=== PATIENT | female | born 1955 | race Caucasian/White ===

== ENCOUNTER 2024-02-26 14:32 | Emergency (ER) | payer MEDICARE, SELFPAY ==
--- NOTE | ~2024-02-26 | XR_ITS ---
XR knee RT 3V DATE: 02/26/2024 15:34 INDICATION: Pain TECHNIQUE: Crosstable lateral, AP and oblique views COMPARISON: None FINDINGS: There is tricompartment osteoarthritis, most severe at the patellofemoral compartment with very prominent periarticular spurring. There is moderate loss of medial compartment joint space heigh t. There is periarticular spurring at the medial and lateral compartments. No fracture or dislocation or joint effusion. No periosteal reaction or bone destruction. No radiopaq ue intra-articular loose body or chondrocalcinosis is noted. IMPRESSION: Tricompartment osteoarthritis, most prominent at the patellofemoral compartment No fracture or dislocation or joint effusion Reviewed, dictated and finalized at location [facility].
--- NOTE | ~2024-02-26 | CT_ITS ---
EXAMINATION: CTA chest PE protocol DATE: 02/26/2024 15:51 INDICATION: Dizziness. Elevated d-dimer TECHNIQUE: Computed tomography angiography (CTA) of the chest was performed with 100 mL Omnipaque-350 intravenous contrast timed to evaluate the pulmonary arteries. Coronal maximum intensity projection 3D-reconstructions were created by the technologist. Automated exposure control and iterative reconst ruction technique were employed. Exam dose: 1036.05 mGy-cm total exam DLP. COMPARISON: 02/26/2024 2 view chest. FINDINGS: There is diagnostic contrast enhancement of the pulmonary arteries and no evidence of pulmo nary embolism. Cardiomegaly. No pericardial or pleural effusion. No hilar or mediastinal mass lesion or hemorrhage. No thoracic aortic aneurysm or dissection. No evidence of aneurysm of the suprarenal abdominal aorta. The lungs are clear of infiltrate or consolidation. Normal morphology of the adrenal glands. Degenerative spurring of the lower cervical and the thoracic spine. No suspicious osteolytic or osteo blastic lesions are noted. IMPRESSION: No evidence of pulmonary embolism Cardiomegaly Reviewed, dictated and finalized at [facility]. Reviewed, dictated and finalized at location [facility].
--- NOTE | ~2024-02-26 | XR_ITS ---
XR chest 2V DATE: 02/26/2024 15:34 INDICATION: Dizziness TECHNIQUE: AP and lateral views COMPARISON: None FINDINGS: Cardiomegaly. Aortic ectasia and mild unfolding. No hilar or mediastinal enlargement. No pulmonary infiltrate or consolidation, pleural effusion or pulmonary vascular congestion or pneumo thorax is detected. IMPRESSION: Cardiomegaly Aortic ectasia and mild unfolding No active pulmonary disease Reviewed, dictated and finalized at location [facility].
--- NOTE | ~2024-02-26 | XR_ITS ---
XR knee LT 3V DATE: 02/26/2024 15:34 INDICATION: Bilateral knee pain. No injury. TECHNIQUE: 3 views including crosstable lateral COMPARISON: None FINDINGS: There is tricompartment osteophytosis, most prominent at the patellofemoral and medial comp artments, with joint space loss and prominent particular spurring. No fracture or dislocation or joint effusion. No periosteal reaction or bone destruction. No radiopaq ue interarticular loose body or chondral calcinosis. There is enthesopathy of the patella at the quadriceps and patellar tendon insertions. IMPRESSION: Tricompartment osteoarthritis, most prominent at the patellofemoral and medial compartmen ts Reviewed, dictated and finalized at location A. IMPRESSION: Tricompartment osteoarthritis, most prominent at the patellofemoral and medial compartments
--- NOTE | ~2024-02-26 | CT_ITS ---
EXAMINATION: CT brain wo con DATE: 02/26/2024 15:51 INDICATION: Vertigo TECHNIQUE: Computed tomography (CT) of the head was performed without intravenous contrast. The mA wa s adjusted according to patient size. Iterative reconstruction technique was employed. Exam dose: 98 3.67 mGy-cm total exam DLP. COMPARISON: None FINDINGS: There is bilateral carotid siphon internal carotid artery calcification. 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 No intracranial mass lesion or hemorrhage or cerebrovascular accident, midline shift or mass effect i s evident. No skull fracture or bone destruction. Paranasal sinuses and mastoid air cells are well-developed and aerated. IMPRESSION: Cerebral atherosclerosis and chronic small vessel ischemic changes of the cerebral No acute intracranial finding Reviewed, dictated and finalized at [facility]. Reviewed, dictated and finalized at location [facility].
[2024-02-26 14:31] VITALS: BP 131/77; PULSE 63; RESP 15; TEMP 36.4; O2SAT 97
--- NOTE | 2024-02-26 14:36 | ECG_ITS ---
Test Date: 2024-02-26 14:36:37 Measurements Intervals Gay Rate: 63 P: 69 NJ: 216 QRS: 11 QRSD: 93 T: 117 QT: 368 QTc: 377 Interpretive Statements SINUS RHYTHM WITH FIRST DEGREE AV BLOCK INCOMPLETE RIGHT BUNDLE BRANCH BLOCK ANTEROSEPTAL MYOCARDIAL INFARCTION , OF INDETERMINATE AGE BORDERLINE ST-T WAVE ABNORMALITY- DIFFUSE LEADS BASELINE ARTIFACT- I, II, III, AVR, AVL, AVF, V1-V6 ABNORMAL ECG No previous ECG available for comparison Electronically Signed On 02-26-2024 19:01:46 CDT by Chuck Clarke D.O.
--- NOTE | 2024-02-26 14:47 | ED.GENADULT ---
HPI - General Adult General Chief complaint: Dizziness Stated complaint: stemi ALERT Time Seen by Provider: 02/26/24 14:40 History of Present Illness HPI narrative: This is a 68-year-old female with a past medical history significant for hypertension, osteoarthritis, chronic pain. Today patient presents to the emergency department via EMS for concerns of increasing dizziness and difficulty walking. Patient states that is been going on for several months but worse this morning. She describes as a room spinning sensation without loss of consciousness. She is endorsing a headache as well. She states that her bilateral knees are aching and causing her significant pain when she walks. EMS was called the seen, they obtained an EKG that showed some concerning ST segment changes and initially was transporting the patient to the hospital for potential STEMI alert. Patient denied any chest pain, shortness a breath, nausea, vomiting, abdominal pain, back pain, diaphoresis. No other anginal equivalents on review of systems questions. She was provided aspirin in route. She was placed on nasal cannula she was saturating 90% in room air. Patient has no history of coronary disease to her knowledge and has never had any heart issues aside from hypertension according to herself. EKG obtained on arrival does not show a STEMI, does have some nonspecific ST segment changes, but not convincingly acute coronary syndrome especially with the lack of symptoms. Code was canceled at this time until further evaluation. Related Data Allergies Allergy/AdvReac Type Severity Reaction Status Date / Time No Known Allergies Allergy Verified 02/26/24 14:41 Review of Systems Review of Systems: As reviewed above in HPI Exam Narrative: GENERAL: [Well-appearing, well-nourished, and in no acute distress.] HEAD: [Normocephalic, atraumatic.] EYES: [PERRLA and EOMI.] ENT: Nares clear, no rhinorrhea or epistaxis. Mucous membranes moist. NECK: Supple. CHEST: [Clear to auscultation. No respiratory distress.] HEART: [Regular rate and rhythm]. No murmur heard. [Normal peripheral pulses.] ABDOMEN: [Soft, nondistended], [nontender], [No rigidity or guarding] EXTREMITIES: Normal range of motion. [No edema.] Tenderness with palpation of the bilateral knees. Able to lift both her legs in the air, no tenderness over the hips. Full range of motion of the extremities. SKIN: Warm, dry, no rash. NEURO: [No focal deficits]. Alert and oriented [x3.] Normal strength and sensation throughout both arms and legs. Awake alert oriented. No ataxia. PSYCH: [Normal mood and affect.] Course Vital Signs Vital signs: Vital Signs Temperature 36.4 C 02/26/24 14:31 Pulse Rate 63 02/26/24 14:31 Respiratory Rate 15 02/26/24 14:31 Blood Pressure 131/77 02/26/24 14:31 Pulse Oximetry 97 02/26/24 14:31 Oxygen Delivery Room Air 02/26/24 14:31 Temperature 36.4 C 02/26/24 14:31 Pulse Rate 51 L 02/26/24 16:15 Respiratory Rate 12 02/26/24 16:15 Blood Pressure 120/70 02/26/24 16:15 Pulse Oximetry 98 02/26/24 16:15 Oxygen Delivery Room Air 02/26/24 14:31 Medical Decision Making MDM Narrative Medical decision making narrative: This is a 68-year-old female with history of hypertension, osteoarthritis, chronic pain who presents to the emergency department for evaluation of dizziness and knee pain. Her symptoms have been going on for several months but worse this morning. She describes occasional room spinning sensations and difficulty ambulating secondary to the pain in her knees. Initial EKG was obtained by EMS that was concerning to them however on evaluation to the emergency department with repeat EKG does not show any kind of STEMI but does have some nonspecific ST segment changes requiring further evaluation. Patient has no chest pain, shortness a breath or other symptoms at this time. She appears well has a normal cardiovascular neurologica
[2024-02-26 14:54] LABS: Glucose Point of Care 107 mg/dl (65-105)
[2024-02-26] MEDS: MECLIZINE HCL 25 MG TABLET PO (14:57)
[2024-02-26] MEDS: LACTATED RINGERS 1,000 ML 999 ML IV CONT (14:59)
[2024-02-26 15:05] LABS: Basophils Percent Auto 0.5 % (0.2-1.2); Eosinophils Absolute Auto 0.1 K/mm3 (0-0.3); Eosinophils Percent Auto 1.5 % (0-4.4); Hematocrit 42.8 % (37.0-47.0); Hemoglobin 13.8 g/dL (12.0-15.0); Immature Granulocyte Absolute 0.01 K/mm3 (0.00-0.031); Immature Granulocyte Percent A 0.2 % (0-0.5); Lymphocytes Absolute Auto 1.37 K/mm3 (0.9-3.2); Lymphocytes Percent Auto 21.1 % (18.3-44.2); Mean Corpuscular HGB Conc 32.2 g/dl (32-36); Mean Corpuscular Volume 89.9 fl (80-100); Mean Platelet Volume 10.6 fl (7.4-10.4); Monocytes Absolute Auto 0.7 K/mm3 (0.1-0.6); Neutrophils Absolute Auto 4.3 K/mm3 (1.3-6.7); Neutrophils Percent Auto 66.7 % (45.5-73.1); Platelet Count Result 196 k/mm3 (150-375); Red Blood Count 4.76 M/mm3 (4.2-5.4); Red Cell Distribution Width 13.1 % (11.5-14.5); White Blood Count 6.5 K/mm3 (4.5-10.0)
[2024-02-26 15:19] LABS: Alanine Aminotransferase 25 U/L (6-35); Alkaline Phosphatase 69 U/L (38-126); Anion Gap 6 mmol/L (4-12); Aspartate Amino Transferase 30 U/L (14-36); Bilirubin,Total 0.5 mg/dL (0.2-1.3); Blood Urea Nitrogen 21 mg/dL (7-17); Calcium 8.6 mg/dL (8.4-10.2); Carbon Dioxide 39 mmol/L (22-30); Chloride 91 mmol/L (98-107); Estimated CRCL calculation 70 ml/min; Estimated Glomerular Filt Rate 55; Glucose 100 mg/dL (65-110); Magnesium 1.9 mg/dL (1.6-2.3); Potassium 3.1 mmol/L (3.4-5.0); Sodium 136 mmol/L (137-145)
[2024-02-26 15:30] LABS: Prothrombin Time 13.7 Seconds (11.1-14.7); Troponin I < 0.012 ng/mL (0.000-0.034)
[2024-02-26 15:31] LABS: Partial Thromboplastin Time 28.5 Seconds (22.3-36.8)
[2024-02-26 15:35] LABS: D Dimer 0.64 ug/mL (<0.48)
[2024-02-26 16:15] VITALS: BP 120/70; PULSE 51; RESP 12; O2SAT 98
[2024-02-26 17:48] LABS: Troponin I < 0.012 ng/mL (0.000-0.034)
[2024-02-26 18:47] VITALS: BP 123/61; PULSE 52; RESP 20; TEMP 36.6; O2SAT 100
== END 2024-02-26 18:49 | disposition home or self-care (01) ==
PROVIDERS: Emergency Provider Student in an Organized Health Care Education/Training Program; PCP Internal Medicine
DX: R42 Dizziness and giddiness (principal); M25.562 Pain in left knee; M25.561 Pain in right knee; I10 Essential (primary) hypertension; M17.0 Bilateral primary osteoarthritis of knee; R94.31 Abnormal electrocardiogram [ECG] [EKG]; I44.0 Atrioventricular block, first degree; I45.10 Unspecified right bundle-branch block; I77.819 Aortic ectasia, unspecified site; I51.7 Cardiomegaly; I67.2 Cerebral atherosclerosis
CPT/HCPCS: 36415; 70450; 71046; 71275; 73562; 80053; 82948; 83735; 84484; 85025; 85380; 85610; 85730; 93005; 96360; 96361; 99284; A9270; J7120; Q9967